=== PATIENT | male | born 1980 | race Caucasian/White ===

== ENCOUNTER 2017-09-01 11:30 | Emergency (ER) | payer OTHER | END 2017-09-01 14:15 | disposition home or self-care (01) | LOC: M ED 11:30 | DX: S93.402A Sprain of unspecified ligament of left ankle, initial encounter (principal); X58.XXXA Exposure to other specified factors, initial encounter; Y92.89 Other specified places as the place of occurrence of the external cause | CPT/HCPCS: 73610 ==

== ENCOUNTER → 2020-11-07 | Outpatient (REF) ==
[~2020-11-07] MED LIST: NAPR-837 PO
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
== END ==
LOC: M PLAIMG 09:12
PROVIDERS: ATTEND Internal Medicine
DX: M06.9 Rheumatoid arthritis, unspecified (principal); M25.572 Pain in left ankle and joints of left foot; M25.521 Pain in right elbow; M79.605 Pain in left leg; M79.642 Pain in left hand